=== PATIENT | male | born 1995 | race Caucasian/White ===

== ENCOUNTER 2025-03-31 09:02 | Emergency (ER) | payer SELFPAY ==
--- NOTE | ~2025-03-31 | XR_ITS ---
HISTORY: chronic low back pain COMPARISON: None. TECHNIQUE: 2 view lumbar spine. FINDINGS: 12 degrees of levoscoliotic curvature of the lower lumbar spine is present. Lumbar vertebral bodies are otherwise normally aligned. There are 6 non-rib bearing lumbar vertebral bodies. Disc spaces and vertebral body heights are well maintained. Facet arthropathy is noted, specifically within the lower lumbar spine. There are no lytic or sclerotic lesions. Paraspinal soft tissues are unremarkable. IMPRESSION: Trace degenerative disease, without acute compression fracture. Reviewed, dictated and finalized at location A.
--- NOTE | ~2025-03-31 | US_ITS ---
EXAMINATION: US venous doppler [facility] DATE: 03/31/2025 10:17 INDICATION: Pain and swelling TECHNIQUE: Grayscale ultrasound images without and with compression and Doppler ultrasound images of the left lower extremity veins were obtained. COMPARISON: None. FINDINGS: The visualized portions of left common femoral vein, profunda (deep) femoral vein, femoral vein, popl iteal vein, peroneal veins, posterior tibial veins, and greater saphenous vein outflow are patent. IMPRESSION: 1. No deep venous thrombosis. Reviewed, dictated and finalized at location A.
[2025-03-31 09:10] VITALS: BP 152/99; PULSE 68; RESP 14; TEMP 36.5; O2SAT 100
--- NOTE | 2025-03-31 09:15 | ED.GENADULT ---
HPI - General Adult General Chief complaint: Extremity Problem,Nontraumatic Stated complaint: LLE pain, low back pain Time Seen by Provider: 03/31/25 09:09 History of Present Illness HPI narrative: 29-year-old male presented to the emergency department for evaluation for left calf pain. Patient reports symptoms started bothering him yesterday. Patient describes a tightness in the left calf and increased pain with ambulation. Patient did not take any medications for pain control. Patient reports he did have some alcohol last night and this did seem to help with his symptoms. Patient denies any specific falls or injuries. Patient denies any chest pain or shortness of breath. Patient has no prior history of PE or DVT. Patient does have some chronic lower back pain as well Related Data Allergies Allergy/AdvReac Type Severity Reaction Status Date / Time latex Allergy Unknown rash Verified 03/31/25 09:17 Review of Systems Review of Systems: All systems reviewed & are unremarkable except as noted in HPI and below Exam Narrative: APPEARANCE: Well appearing, no pain, no distress, well-nourished. HEAD: normocephalic, atraumatic. EYES: PERRLA/EOMI, conjunctivae clear. NOSE: Normal no drainage EARS:TMS clear with good light reflex. THROAT: Pharynx clear, no exudate. NECK: Supple. No adenopathy, no masses. RESPIRATORY: Airway patent, respirations nonlabored. Clear to auscultation bilaterally, no rales, rhonchi, wheezing. CARDIOVASCULAR: Regular rate and rhythm without murmurs rubs or gallops. ABDOMINAL: Soft, nontender, nondistended, normal bowel sounds MUSCULOSKELETAL: No lower extremity edema, mild left posterior calf tenderness to palpation, no erythema NEURO: Alert. Cranial nerves II through XII intact. Grossly intact SKIN: Warm, dry. Normal Color Course Vital Signs Vital signs: Vital Signs Temperature 97.7 F 03/31/25 09:10 Pulse Rate 68 03/31/25 09:10 Respiratory Rate 14 03/31/25 09:10 Blood Pressure 152/99 H 03/31/25 09:10 Pulse Oximetry 100 03/31/25 09:10 Oxygen Delivery Room Air 03/31/25 09:10 Temperature 97.7 F 03/31/25 09:10 Pulse Rate 85 03/31/25 11:29 Respiratory Rate 14 03/31/25 11:29 Blood Pressure 113/72 03/31/25 11:29 Pulse Oximetry 100 03/31/25 11:29 Oxygen Delivery Room Air 03/31/25 09:10 Medical Decision Making MDM Narrative Medical decision making narrative: 29-year-old male presents emergency department for evaluation for lower extremity tenderness. Patient is currently afebrile with a leukocytosis and hemoglobin of 15.3. Patient has no acute abnormalities on his CMP. Lower extremity ultrasound was negative for DVT and patient was having some lower back pain but x-ray was negative for acute abnormality., the back pain is chronic in nature. Patient family updated on the results of the workup and plan for treatment for home. All questions concerns were addressed. Differential Diagnosis Differential Diagnosis: DVT, cellulitis, muscular strain, lower back strain, dehydration Vital Signs Vital Signs: Vital Signs Temperature 97.7 F 03/31/25 09:10 Pulse Rate 68 03/31/25 09:10 Respiratory Rate 14 03/31/25 09:10 Blood Pressure 152/99 H 03/31/25 09:10 Pulse Oximetry 100 03/31/25 09:10 Oxygen Delivery Room Air 03/31/25 09:10 Temperature 97.7 F 03/31/25 09:10 Pulse Rate 85 03/31/25 11:29 Respiratory Rate 14 03/31/25 11:29 Blood Pressure 113/72 03/31/25 11:29 Pulse Oximetry 100 03/31/25 11:29 Oxygen Delivery Room Air 03/31/25 09:10 Lab Data Lab results reviewed: Yes I reviewed the patient's lab results. 03/31/25 09:31 03/31/25 09:31 Labs: Lab Results 03/31/25 03/31/25 Range/Units 09:31 09:31 WBC 7.3 (4.5-10.0) K/mm3 RBC 5.05 (4.6-6.20) M/mm3 Hgb 15.3 (14.0-18.0) g/dL Hct 46.4 (42.0-52.0) % MCV 91.9 (80-100) fl MCH 30.3 (26-34) pg MCHC 33.0 (32-36) g/dl RDW 13.2 (11.5-14.5) % Plt Count 227 (150-375) k/mm3 MPV 10.8 H (7.4-10.4) fl Immature Gran % (Auto) 0.1 (0-0.5) % Neut % (Auto) 56.9 (45.5-73.1) % Lymph % (Auto) 33.8 (18.3-44.2) % Barbour % (Auto) 7.5 (2.6-8.5) % Eos % (Auto) 1.0 (0-4.4) % Baso % (Auto) 0.7 (0.2-1.2) % Lymph # (Auto) 2.47 (0.9-3.2) K/mm3 Barbour # (Auto) 0.6 (0.1-0.6) K/mm3 Eos # (Auto) 0.1 (0-0.3) K/mm3 Baso # (Auto) 0.1 (0.0-0.1) K/mm3 Abs Immat Gran (auto) 0.01 (0.00-0.031) K/mm3 Absolute Neuts (auto) 4.2 (1.3-6.7) K/mm3 Absolute Nucleated RBC 0.000 (0.0-0.012) K/mm3 Nucleated RBC % 0.0 (0.0-0.2) % APTT 26.7 (22.3-36.8) Seconds Sodium 142 (137-145) mmol/L Potassium 4.5 (3.4-5.0) mmol/L Chloride 106 (98-107) mmol/L Carbon Dioxide 26 (22-30) mmol/L Anion Gap 10 (4-12) mmol/L BUN 14 (9-20) mg/dL Creatinine 0.85 (0.7-1.3) mg/dL Estim Creat Clear Calc 130 ml/min Estimated GFR > 60 (59 - ) Glucose 98 (65-110) mg/dL Calcium 9.4 (8.4-10.2) mg/dL Magnesium 2.1 Cancelled (1.6-2.3) mg/dL Total Bilirubin 0.5 (0.2-1.3) mg/dL AST 28 (17-59) U/L ALT 24 (6-50) U/L Alkaline Phosphatase 43 (38-126) U/L Total Protein 7.9 (6.3-8.2) g/dL Albumin 4.4 (3.5-5.1) g/dL Imaging Data Radiologist's impression: Impressions Lumbar Spine X-Ray 03/31/25 09:40 IMPRESSION: Trace degenerative disease, without acute compression fracture. Venous Doppler Study 03/31/25 10:47 IMPRESSION: 1. No deep venous thrombosis. Discharge Plan Discharge Clinical Impression: Calf pain, Back pain Patient Disposition: Home Condition: Stable Instructions: Antibiotic Form, Back Pain (ED), Leg Pain (ED) Additional Instructions: Tylenol and ibuprofen for pain control, drink plenty of fluids. Flexeril as needed for muscle spasm. Your ultrasound was negative for deep vein thrombosis and your lower back x-ray was negative for acute findings. Have close follow-up with your primary care physician. Patient Language: Albanian Prescriptions: New cyclobenzaprine 10 mg tablet 10 mg PO BID PRN (Reason: muscle spasm) Qty: 14 0RF Follow-up/Referrals: PHYSICIAN,ELIGIBILITY AND OCCUPANCY INTERVIEWER [Primary Care Provider] -
[2025-03-31] MEDS: HYDROcodone/acetaminophen (*CRX) 5-325 MG TABLET 1 TAB PO (09:29)
[2025-03-31] MEDS: CYCLOBENZAPRINE HCL 10 MG TABLET PO (09:29)
[2025-03-31 09:37] LABS: Hematocrit 46.4 % (42.0-52.0); Hemoglobin 15.3 g/dL (14.0-18.0); Immature Granulocyte Percent A 0.1 % (0-0.5); Lymphocytes Absolute Auto 2.47 K/mm3 (0.9-3.2); Mean Corpuscular HGB Conc 33.0 g/dl (32-36); Mean Corpuscular Hemoglobin 30.3 pg (26-34); Mean Corpuscular Volume 91.9 fl (80-100); Nucleated Red Blood Cells Absolute Auto 0.000 K/mm3 (0.0-0.012); Nucleated Red Blood Cells Perc 0.0 % (0.0-0.2); Platelet Count Result 227 k/mm3 (150-375); Red Blood Count 5.05 M/mm3 (4.6-6.20); White Blood Count 7.3 K/mm3 (4.5-10.0)
[2025-03-31 09:46] LABS: Alanine Aminotransferase 24 U/L (6-50); Albumin Level 4.4 g/dL (3.5-5.1); Alkaline Phosphatase 43 U/L (38-126); Anion Gap 10 mmol/L (4-12); Aspartate Amino Transferase 28 U/L (17-59); Bilirubin,Total 0.5 mg/dL (0.2-1.3); Blood Urea Nitrogen 14 mg/dL (9-20); Calcium 9.4 mg/dL (8.4-10.2); Carbon Dioxide 26 mmol/L (22-30); Chloride 106 mmol/L (98-107); Estimated CRCL calculation 130 ml/min; Estimated Glomerular Filt Rate > 60; Glucose 98 mg/dL (65-110); Magnesium 2.1 mg/dL (1.6-2.3); Potassium 4.5 mmol/L (3.4-5.0); Sodium 142 mmol/L (137-145); Total Protein 7.9 g/dL (6.3-8.2)
[2025-03-31 09:48] LABS: Partial Thromboplastin Time 26.7 Seconds (22.3-36.8)
--- OUTSIDE RECORDS SUMMARY | 2025-03-31 09:49 | XMS_ITS | Clinical Summary ---
Author Organization [facility] Address [address] [place] [address] Phone Care Team Providers Care Ham Facer Name Role Phone Unavailable Primary Care Provider Unavailabl e Allergies Active Allergy Reactions Criticality Noted Date Comments Latex Hives 04/15/2021 Medications tiZANidine (ZANAFLEX) 2 MG TabletIndicatio ns:Chronic bilateral low back pain without sciatica Take 1-2 tablets by oral route every 8 hours for muscle spasm 30 Tablet 1 Active meloxicam (MOBIC) 15 MG TabletIndicatio ns:Chronic bilateral low back pain without sciatica Take 1 Tablet by mouth daily as needed for Moderate or more severe pain. 30 Tablet 1 1 Active albuterol 108 (90 Base) MCG/ACT Aerosol Solution take 1-2 Puffs by inhalation every 6 hours as needed for Cough. 1 g 2 Active predniSONE (DELTASONE) 20 MG Tablet Take 1 Tablet by mouth 2 times daily. 10 Tablet 2 Active Active Problems No known active problems Immunizations Immunization Administration Dates Next Due Covid-19, Mrna, Lnp-s, Pf, 30 Mcg/0.3 Ml Dose (P fizer) 06/25/2021 TDAP Vaccine 04/15/2021 Family History Medical History Relation Name Comments Hypertension Father No Known Problems Mother Relation Name Status Comments Brother Alive Father Alive Mother Alive Social History Tobacco Use Types Packs/Day Years Used Date Smoking Tobacco: Never Smokeless Tobacco: Never Tobacco Cessation:Counseling Given: No Alcohol Use Standard Drinks/Week Comments Yes 0 (1 standard drink = 0.6 oz pur e alcohol) social PHQ-2 Answer Date Recorded Total Score - Questions 1-9 0 12/26 Sex and Gender Information Value Date Recorded Sex Assigned at Not on file Legal Sex Male 10:22 PM CDT Gender Identity Not on file Sexual Orientation Not on file Last Filed Vital Signs Vital Sign Reading Time Taken Comments Blood Pressure 120/88 01/21/2022 3:40 PM CDT Pulse 94 01/21/2022 3:40 PM CDT Temperature 36.3 C (97.3 F) 01/21/2022 3:40 PM CDT Respiratory Rate 16 01/21/2022 3:40 PM CDT Oxygen Saturation 98% 01/21/2022 3:40 PM CDT Inhaled Oxygen Concentration - - Weight 103.2 kg (227 lb 9.6 oz) 01/21/2022 3:40 PM CDT Height 170.2 cm (5' 7) 01/21/2022 3:40 PM CDT Body Mass Index 35.65 01/21/2022 3:40 PM CDT Plan of Treatment Health Maintenance Due Date Last Done Comments Hepatitis C Virus (HCV) Screening 1997 Human Papillomavirus (HPV) Immunization (1 - Male 3-dose series) 2012 Hepatitis B Immunization (1 of 3 - 19+ 3-dose series) 2016 SARS-COV-2 Immunization (2 - season) 2024 06/25/2021 Influenza Immunization (Seas on Ended) 2025 Respiratory Syncytial Virus (RSV) Immunization (Adult) (1 - 1-dose 75+ series) 2072 DTaP/Tdap/Td Immunization Discontinued 04/15/2021 Meningococcal Immunization (ACWY) Aged Out No longer eligible based on patient's age to complete this topic Pneumococcal Immunization Combined Aged Out No longer eligible based on patient's age to complete this topic Rotavirus Immunization Aged Out No lo nger eligible based on patient's age to complete this topic Insurance [facility]
--- OUTSIDE RECORDS SUMMARY | 2025-03-31 09:49 | XMS_ITS | Clinical Summary ---
Author Organization [facility] Address [address] [place] [address] Care Team Providers Care Tobacco Prevention Health Educator Name Role Phone Unavailable Primary Care Provider Unavailabl e Source Comments [facility],non-owned Affiliates and Associated Physician Practices is amultiple site organization consisting of ambulatory clinics and hospital sitesin [place], [place], [place] and [place]. This disclosure is being madepursuant to the Care Everywhere program and may not contain all information available regarding this patient. Last updated 18.[facility] Allergies No known active allergies Medications * Be aware that medications may not be up to date on this document. Alwaysverify current medications with the patient. albuterol HFA (PROVENTIL;SAURABH ISH;PROAIR) 108 (90 Base) MCG/ACT inhaler Inhale 2 puffs by mouth every 4 hours as needed for Wheezing or Cough 1 Inhaler 9 Active benzonatate (TESSALON) 200 MG capsule Take 1 capsule by mouth 3 times daily as needed for Cough 30 capsule 9 Active azithromycin (ZITHROMAX) 250 MG tabletIndication s:Acute sinusitis, recurrence not specified, unspecified location Take 2 tabs today, then 1 tab daily for next 4 days 6 tablet 9 Active Active Problems No known active problems Social History Tobacco Use Types Packs/Day Years Used Date Smoking Tobacco: Never Smokeless Tobacco: Never Sex and Gender Information Value Date Recorded Sex Assigned at Not on file Legal Sex Male 7:50 PM CDT Gender Identity Not on file Sexual Orientation Not on file Last Filed Vital Signs Vital Sign Reading Time Taken Comments Blood Pressure 122/70 07/30/2019 3:09 PM BUILDING MANAGER Pulse 113 07/30/2019 3:09 PM BUILDING MANAGER Temperature 38.3 C (100.9 F) 07/30/2019 3:09 PM BUILDING MANAGER Respiratory Rate 18 07/30/2019 3:09 PM BUILDING MANAGER Oxygen Saturation 97% 07/30/2019 3:09 PM BUILDING MANAGER Inhaled Oxygen Concentration - - Weight 95.3 kg (210 lb) 07/30/2019 3:09 PM BUILDING MANAGER Height 170.2 cm (5' 7) 07/30/2019 3:09 PM BUILDING MANAGER Body Mass Index 32.89 07/30/2019 3:09 PM BUILDING MANAGER Plan of Treatment Health Maintenance Due Date Last Done Comments HIV SCREENING 2012 HEPATITIS C SCREENING 04/25/2015 DTAP/TDAP/TD VACCINES (1 - Tdap) 2016 HEPATITIS B VACCINE (1 of 3 - 19+ 3-dose series) 2016 COVID-19 VACCINE (1 - 2023-2 5 season) 2024 DEPRESSION SCREENING 09/26/2024 INFLUENZA VACCINE (#1) 2025 ZOSTER VACCINE (1 of 2) 2047 HIB VACCINE Aged Out No longer eligi ble based on patient's age to complete this topic HPV VACCINE Aged Out No longer eligi ble based on patient's age to complete this topic MENINGOCOCCAL (Group B) VACC INE SHARED DECISION-MAKING Aged Out No longer eligibl e based on patient's age to complete this topic MENINGOCOCCAL GROUPS A/C/Y/W VACCINE Aged Out No longer eligible b ased on patient's age to complete this topic PNEUMOCOCCAL VACCINE Aged Out No long er eligible based on patient's age to complete this topic Insurance CARE
[2025-03-31 11:29] VITALS: BP 113/72; PULSE 85; RESP 14; O2SAT 100
== END 2025-03-31 11:56 | disposition home or self-care (01) ==
PROVIDERS: Emergency Provider Emergency Medicine
DX: M79.662 Pain in left lower leg (principal); M54.9 Dorsalgia, unspecified
CPT/HCPCS: 36415; 72100; 80053; 83735; 85025; 85730; 93971; 99284; A9270